=== PATIENT | female | born 1985 | race Two or more races ===

== ENCOUNTER 2022-10-11 23:45 | Emergency (ER) | payer MEDICAID, OTHER ==
[~2022-10-11] VITALS: Ht 162.6 cm; Wt 68.0 kg
[2022-10-12] MEDS ORDERED: HALOPERIDOL LACTATE INJ 5 MG/ML VIAL IM ONE
[2022-10-12] MEDS ORDERED: diphenhydrAMINE HCL 50 MG/ML VIAL IM ONE
[2022-10-12] MEDS ORDERED: LORAZEPAM INJ 2 MG/ML VIAL ONE (00:04)
[2022-10-12] MEDS ORDERED: diphenhydrAMINE HCL 50 MG/ML VIAL ONE (00:04)
[2022-10-12] MEDS ORDERED: HALOPERIDOL LACTATE INJ 5 MG/ML VIAL ONE (00:04)
[2022-10-12] MEDS ORDERED: LORAZEPAM INJ 2 MG/ML VIAL IM ONE ×2 (00:30)
[2022-10-12 01:30] LABS: BASOPHILS % (AUTO) 0.2 % (0.0-2.0); EOSINOPHILS % (AUTO) 0.7 % (0.0-6.0); HEMATOCRIT 35 % (33-45); HEMOGLOBIN 11.4 g/dL (11.5-14.8); LYMPHOCYTES # (AUTO) 1.3 K/uL (0.8-4.8); LYMPHOCYTES % (AUTO) 9.2 % (20.0-44.0); MEAN CORPUSCULAR HGB CONC 33 g/dl (31.0-36.0); MEAN CORPUSCULAR VOLUME 91 fL (82-100); MONOCYTES # (AUTO) 0.7 K/uL (0.1-1.30); NEUTROPHILS # (AUTO) 11.9 K/uL (1.8-8.9); NEUTROPHILS % (AUTO) 84.9 % (43.0-81.0); PLATELET COUNT (AUTO) 230 K/uL (150-450); RED BLOOD CELL COUNT(AUTO) 3.86 MIL/uL (4.0-5.2)
[2022-10-12 01:45] LABS: CARBON DIOXIDE 23 mmol/L (21-32); CHLORIDE 104 mmol/L (98-107); CREATININE 1.1 mg/dL (0.6-1.3); GLUCOSE 77 mg/dL (74-106); POTASSIUM 3.4 mmol/L (3.5-5.1); SODIUM SERUM 137 mmol/L (136-145); UREA NITROGEN, BLOOD 15 mg/dL (7-18)
[2022-10-12 01:52] LABS: ALANINE AMINOTRANSFERASE 22 U/L (12-78); ALBUMIN 3.4 g/dL (3.4-5.0); ALKALINE PHOSPHATASE 74 U/L (46-116); ASPARTATE AMINOTRANSFERASE 21 U/L (15-37); BILIRUBIN,DIRECT 0.1 mg/dL (0.0-0.2); BILIRUBIN,TOTAL 0.2 mg/dL (0.2-1.0)
[2022-10-12 01:57] LABS: ACETAMINOPHEN 0 ug/ml (10-30); ALCOHOL, BLOOD < 3 mg/dL (0-0)
[2022-10-12 04:46] LABS: BILIRUBIN,URINE NEGATIVE (NEGATIVE); COLOR,URINE YELLOW (YELLOW); LEUKOCYTE ESTERASE ,URINE NEGATIVE (NEGATIVE); NITRITE, URINE NEGATIVE (NEGATIVE); PH,URINE 6.5 (5.0-8.0); PROTEIN,URINE 1+ mg/dl (NEGATIVE); UGLUCOSE NEGATIVE (NEGATIVE); UROBILINOGEN,URINE 0.2 EU/dL (0.2)
[2022-10-12 05:08] LABS: BACTERIA,URINE Rare /HPF (None Seen); RBC,URINE 0-2 /HPF (0-2); WBC,URINE 0-2 /HPF (0-3)
[2022-10-12 05:09] LABS: CALCIUM OXALATE CRYSTALS,UR Few /HPF (None Seen); SQUAMOUS EPITHELIAL CELL,UR Few /HPF (None Seen); URIC ACID CRYSTALS,URINE Moderate /HPF (None Seen)
--- NOTE | 2022-10-12 08:12 | NUR ---
[facility] CALLED TO PROVIDE COVID SWAB
--- NOTE | 2022-10-12 09:40 | NUR ---
CALLED [employer] FOR CONSULT WITH PT. THEY ARE COMING NOW.
--- NOTE | 2022-10-12 09:41 | NUR ---
PTS IS CARL, NUMBER IS [phone]
--- NOTE | 2022-10-12 11:31 | NUR ---
ART IS ON WAY TO SEE PT FOR CRISIS CONSULTATION
--- NOTE | 2022-10-12 12:26 | NUR ---
cleared by NELLIE Gibbs- see notes below: Interventions Crisis evaluation 5150 discontinued. Patient discharged home with he boyfriend. F/U with [facility] and [facility]. Goal Patient will F/U with [facility] and [facility]. PATTIE RODRIGUEZ LCSWJan 2022 11:59
--- NOTE | 2022-10-12 12:27 | NUR ---
called the patient's boyfriend - he will come and orange picker the patient from the ER department.
--- NOTE | 2022-10-12 12:49 | NUR ---
Patient discharged to home in stable condition. Written and verbal after care instructions given. Patient verbalizes understanding of instruction. Pt ambulated with steady gait. [id number]. picked up by boyfriend.
[2022-10-12 12:54] VITALS: BP 138/88
== END 2022-10-12 13:06 | disposition home or self-care (01) ==
LOC: ER 23:46 → EDBD 23:46 → ER 10-12 13:06
DX: F23 Brief psychotic disorder (principal); F15.10 Other stimulant abuse, uncomplicated; Z20.822 Contact with and (suspected) exposure to COVID-19; D72.829 Elevated white blood cell count, unspecified
CPT/HCPCS: 99285; 70450; 36415; 96372 ×2; 85025; 80048; 80076; 84703; 81001; 87426; 80143; 80320; 80307; J2060; J1200; J1630; C9803; G0480